=== PATIENT | female | born 1995 | race Caucasian/White ===

== ENCOUNTER 2022-05-21 06:41 | Day surgery (SDC) | payer OTHER ==
[~2022-05-21] VITALS: Ht 165.1 cm; Wt 92.1 kg
[2022-05-21] MEDS ORDERED: fentaNYL citrate 0.05 MG/ML VIAL ONE (08:55)
[2022-05-21] MEDS ORDERED: MIDAZOLAM 2 MG/2 ML VIAL ONE (08:56)
[2022-05-21] MEDS ORDERED: LIDOCAINE 2% 100 MG/5 ML UJET TP ONE (08:56)
[2022-05-21] MEDS ORDERED: fentaNYL citrate 0.05 MG/ML VIAL IVP ONE (09:35)
[2022-05-21] MEDS ORDERED: MIDAZOLAM 2 MG/2 ML VIAL IVP ONE (09:35)
== END 2022-05-21 10:08 | disposition home or self-care (01) ==
LOC: MDS 06:41 → MMU 06:43 → MDS 10:08
PROVIDERS: ATTEND Internal Medicine Gastroenterology
DX: K62.5 Hemorrhage of anus and rectum (principal); K63.5 Polyp of colon; R10.30 Lower abdominal pain, unspecified; Z80.0 Family history of malignant neoplasm of digestive organs; Z20.822 Contact with and (suspected) exposure to COVID-19
CPT/HCPCS: 45385; 81025; 87426; J2250; J3010